=== PATIENT | female | born 1955 | race African-American/Black ===

== ENCOUNTER 2020-07-07 06:00 | Day surgery (SDC) | payer OTHER ==
[2020-07-01 17:23] VITALS: BMI 34.0
[2020-07-07] MEDS ORDERED: MORPHINE SULFATE 10 MG/1 ML *VIAL ONE (07:21)
[2020-07-07] MEDS ORDERED: ceFAZolin SODIUM 1 GM VIAL ONE (07:55)
[2020-07-07] MEDS ORDERED: PROPOFOL 20 ML ONE (07:55)
[2020-07-07] MEDS ORDERED: ONDANSETRON 4 MG/2 ML VIAL ONE (08:28)
[2020-07-07] MEDS ORDERED: DEXAMETHASONE SOD PHOSPHATE 4 MG/1 ML VIAL ONE (08:28)
[2020-07-07] MEDS ORDERED: BUPIVACAINE HCL/PF 0.5% (5 MG/ML) 30 ML VIAL IJ ONE ×2 (08:31)
[2020-07-07] MEDS ORDERED: morphine CARPU-JECT 10 MG/1 ML DISP.SYRIN NR ONE (08:43)
[2020-07-07] MEDS ORDERED: ACETAMINOPHEN 325 MG TABLET (FP) PO PRN (09:06)
[2020-07-07] MEDS ORDERED: ONDANSETRON 4 MG/2 ML VIAL IVPUSH PRN (09:06)
--- NOTE | 2020-07-07 09:57 | OP ---
DATE OF OPERATION: 07/07/2020 PREOPERATIVE DIAGNOSES: 1. Stiffness of the right knee. 2. Torn meniscus to the right knee. POSTOPERATIVE DIAGNOSES: 1. Stiffness to the right knee with adhesions. 2. Osteochondritis dissecans lesion to the right knee. 3. Loose body to the right knee. 4. Extensive joint debris to the right knee. 5. Chondral fissuring to the right knee. 6. 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 7. Torn meniscus to the right knee. PROCEDURE PERFORMED: 1. Manipulation under anesthesia which was performed gently to the right knee with lysis and resection of adhesion. 2. Stem cell recruitment with microdrilling for osteochondritis dissecans lesion to the right knee. 3. Removal loose body to the right knee. 4. Extensive joint debridement to the right knee. 5. Chondral shaving chondroplasty, right knee. 6. Extensive synovectomy to the right knee. 7. Meniscectomy to the right medial meniscus. 8. Plastic surgical closure to the right knee. SURGEON: Claudia Horner MD ACTING TEACHER: CHARLES Ellis ANESTHESIA: MIGDALIA Chaves TYPE OF ANESTHESIA: General anesthesia. PROCEDURE: The procedure consisted of the patient being brought into the operating room and gently transferred from the stretcher to the OR table with all bony prominences well padded. The right leg was prepared and draped in a sterile fashion. The patient was given intravenous antibiotics and copious irrigation throughout the procedure to minimize risk for infection. A complete risk, benefit, alternative discussion was conducted with the patient which was inclusive of but not limited to infection, bleeding, , paralysis, increased pain, need for repeat surgery. Patient asked questions, understood the procedure and desired to proceed with surgical treatment. An appropriate time out was conducted. Following sterile preparation and draping of the right leg, the leg was exsanguinated using a rubber Esmarch bandage and the tourniquet inflated to 350 mmHg. A gentle slow manipulation under anesthesia was conducted. Initially there was 10 degrees block to extension and 85 degrees of flexion. Following the slow careful manipulation full extension with 120 degrees of flexion was achieved. Suprapatellar, medial and lateral joint line portals were used to introduce the arthroscope and arthroscopic instruments. The knee was examined. Adhesions were identified in the joint and these were lysed and resected. There was noted to be extensive hypertrophic synovium in the suprapatellar pouch. Extensive synovectomy was performed. Medial and lateral gutters were without plica or loose body. Medial meniscus was found to have a tear of the posterior horn and this was resected using shaver and radiofrequency wand. There was noted to be an osteochondritis dissecans lesion on the medial femoral condyle of 1 cm in diameter as measured by comparison with the diameter of the shaver which was approximately 4 mm in diameter. The shaver was used to debrided the osteochondritis dissecans lesion until good bone was visualized and a 0.62-mm drill bit was used to drill a perforation pattern allowing local stem cells to be recruited to fill the defect. The undersurface of the patella had damage with fissuring and cracking consistent with chondromalacia and this was smoothed using shaver and radiofrequency wand. Intercondylar region was noted to have joint debris and extensive joint debridement was performed. Anterior and posterior cruciate ligaments were visualized and found to be intact. Lateral meniscus was examined and the lateral joint space. There was noted to be a loose body in the lateral joint space and this was grasped and shaved and removed from the joint. The lateral meniscus was also found to have a tear and this was debrided using shaver and radiofrequency wand. The knee joint was then copious irrigated with sterile saline irrigant. The wounds were closed with 4-0 undyed Vicryl and this was performed in a plastic surgical closure with inverted sutures. Steri-Strips, Xeroform, 4 x 4's, sterile Webril, Bruno bandages and a knee immobilizer were then applied. The tourniquet was deflated after approximately 20 minutes of tourniquet time. There were no intraoperative complications. The patient tolerated the procedure well. The patient was transferred from the operating room to the recovery room in excellent condition. Javid Freeman was critical for assisting during surgery, holding the arthroscope I used the drill and arthroscopic instruments. He provided critical support and safety in surgical treatment. CLAUDAI HORNER M.D. [id number]
[2020-07-07 10:14] VITALS: TEMP 97.7
[2020-07-07 11:13] VITALS: BP 114/80; PULSE 54
--- NOTE | 2020-07-08 18:13 | PATH ---
Surgical Pathology Report Patient Name: SEBLE STEPHENS [facility]. Rec. #: [id number] /Age/Gender: 1955 (Age: 65) / F Account: [id number] Location: [facility] Taken: 07/07/2020 Received: 07/07/2020 Reported: 07/08/2020 Physicians: Matthew Mckeon M.D. Specimen(s) Received RIGHT KNEE SHAVINGS Clinical History Torn meniscus right knee Final Diagnosis RIGHT KNEE SHAVINGS: FIBROCARTILAGE AND SYNOVIAL TISSUE WITH FOCAL FIBROSIS AND REACTIVE CHANGE. Electronically Signed Courtney Major M.D. Gross Description Received in formalin labeled "right knee shavings," are multiple fragments of white soft tissue measuring 1.5 x 1.5 x 0.2 cm aggregate. The formalin is filtered and entirely submitted in one cassette. JANET/07/08/2020 taylor/07/08/2020
== END 2020-07-07 11:00 | disposition home or self-care (01) ==
LOC: FASU 06:00
PROVIDERS: ATTEND Orthopaedic Surgery
PROC: 0SBC4ZZ Excision of Right Knee Joint, Percutaneous Endoscopic Approach (ICD-10-PCS; 2020-07-07)
PROC: 0SQC4ZZ Repair Right Knee Joint, Percutaneous Endoscopic Approach (ICD-10-PCS; 2020-07-07)
PROC: 0SBC4ZZ Excision of Right Knee Joint, Percutaneous Endoscopic Approach (ICD-10-PCS; 2020-07-07)
PROC: 0SQC4ZZ Repair Right Knee Joint, Percutaneous Endoscopic Approach (ICD-10-PCS; 2020-07-07)
PROC: 0SBC4ZZ Excision of Right Knee Joint, Percutaneous Endoscopic Approach (ICD-10-PCS; principal; 2020-07-07 08:30)
DX: S83.241A Other tear of medial meniscus, current injury, right knee, initial encounter (principal); S83.281A Other tear of lateral meniscus, current injury, right knee, initial encounter; M25.661 Stiffness of right knee, not elsewhere classified; M93.261 Osteochondritis dissecans, right knee; M23.41 Loose body in knee, right knee; M94.261 Chondromalacia, right knee; M67.261 Synovial hypertrophy, not elsewhere classified, right lower leg; M25.861 Other specified joint disorders, right knee; X58.XXXA Exposure to other specified factors, initial encounter; Y93.9 Activity, unspecified; Y92.9 Unspecified place or not applicable
CPT/HCPCS: 29876; 29880; 29886; G0289; 88304-TC; 94760